=== PATIENT | female | born 1980 | race Caucasian/White ===

== ENCOUNTER 2018-01-25 16:58 | Outpatient (CLI) | payer MEDICAID ==
[2018-01-25 17:57] LABS: ADD UMIC YES; UR ASCORBIC ACID NEGATIVE (NEGATIVE); UR BACTERIA FEW /HPF (NONE SEEN); UR BILIRUBIN (Dip) NEGATIVE (NEGATIVE); UR BLOOD (Dip) 1+ mg/dL (NEGATIVE); UR CLARITY CLEAR (CLEAR); UR COLOR STRAW (YELLOW); UR GLUCOSE (Dip) NEGATIVE (NEGATIVE); UR KETONES (Dip) NEGATIVE (NEGATIVE); UR LEUKOCYTE ESTERASE (Dip) NEGATIVE Leu/ul (NEGATIVE); UR NITRITE (Dip) NEGATIVE (NEGATIVE); UR RBC 1 /HPF (0-5); UR SPECIFIC GRAVITY (Dip) 1.004 (1.003-1.030); UR SQUAMOUS EPITHELIAL CELL FEW /HPF (FEW); UR TOTAL PROTEIN (Dip) NEGATIVE (NEGATIVE); UR UROBILINOGEN (Dip) NEGATIVE (NEGATIVE); UR WBC 2 /HPF (0-5)
[2018-01-25 18:01] LABS: ADD MAN DIFF? NO; BASOPHILS % 0.1 % (0.0-2.0); EOSINOPHILS # 0.1 10^3/ul (0.0-0.5); EOSINOPHILS % 0.7 % (0.0-7.0); HEMATOCRIT 34.8 % (37.0-47.0); HEMOGLOBIN 11.9 g/dl (12.0-16.0); LYMPHOCYTES # 2.4 10^3/ul (0.8-2.9); LYMPHOCYTES % 18.1 % (15.0-51.0); MEAN CORPUSCULAR HEMOGLOBIN 30.4 pg (29.0-33.0); MEAN CORPUSCULAR HGB CONC 34.2 g/dl (32.0-37.0); MONOCYTE # 0.9 10^3/ul (0.3-0.9); MONOCYTES % 6.9 % (0.0-11.0); NEUTROPHIL # 9.8 10^3/ul (1.6-7.5); NEUTROPHILS % 73.8 % (39.0-77.0); PLATELET COUNT 243 10^3/UL (140-415); RED BLOOD COUNT 3.91 10^6/ul (4.20-5.40); RED CELL DISTRIBUTION WIDTH 13.1 % (11.5-14.5)
[2018-01-25 18:01] LABS: WHITE BLOOD COUNT 13.3 10^3/ul (4.8-10.8)
[2018-01-25 18:24] LABS: ALANINE AMINOTRANSFERASE 34 IU/L (13-69); ALBUMIN 3.8 g/dl (3.3-4.9); ALBUMIN/GLOBULIN RATIO 0.97; ALKALINE PHOSPHATASE 104 IU/L (42-121); ANION GAP 8 (5-13); ASPARTATE AMINO TRANSFERASE 36 IU/L (15-46); BILIRUBIN,INDIRECT 0.2 mg/dl (0-1.1); BILIRUBIN,TOTAL 0.2 mg/dl (0.2-1.3); BLOOD UREA NITROGEN 6 mg/dl (7-20); CALCIUM 8.9 mg/dl (8.4-10.2); CARBON DIOXIDE 24 mmol/L (21-31); CHLORIDE 107 mmol/L (97-110); CREATININE 0.51 mg/dl (0.44-1.00); Estimated GFR > 60 mL/min (>60); GLUCOSE 92 mg/dl (70-220); POTASSIUM 3.5 mmol/L (3.5-5.1); SODIUM 139 mmol/L (135-144); TOTAL PROTEIN 7.7 g/dl (6.1-8.1); URIC ACID 3.6 mg/dl (3.1-7.9)
[2018-01-25 18:25] LABS: INR 0.98; PARTIAL THROMBOPLASTIN TIME 31.1 Sec (23.0-35.0); PROTIME 13.1 Sec (11.9-14.9)
== END 2018-01-25 20:35 | disposition home or self-care (01) ==
LOC: OBT 16:58 → L-D 17:02 → OBT 20:35
DX: O16.2 Unspecified maternal hypertension, second trimester (principal); O09.522 Supervision of elderly multigravida, second trimester; Z3A.23 23 weeks gestation of pregnancy
CPT/HCPCS: 80053; 81001; 84560; 85025; 85384; 85610; 85730

== ENCOUNTER 2018-04-09 03:40 | Outpatient (CLI) | payer MEDICAID ==
[2018-04-09] MEDS: LACTATED RINGER'S 1,000 ML IV ×2 (05:41→06:34)
[2018-04-09 06:37] LABS: ADD UMIC YES; UR ASCORBIC ACID NEGATIVE (NEGATIVE); UR BACTERIA FEW /HPF (NONE SEEN); UR BILIRUBIN (Dip) NEGATIVE (NEGATIVE); UR BLOOD (Dip) 1+ mg/dL (NEGATIVE); UR CLARITY CLEAR (CLEAR); UR COLOR STRAW (YELLOW); UR GLUCOSE (Dip) NEGATIVE (NEGATIVE); UR KETONES (Dip) NEGATIVE (NEGATIVE); UR LEUKOCYTE ESTERASE (Dip) TRACE Leu/ul (NEGATIVE); UR NITRITE (Dip) NEGATIVE (NEGATIVE); UR RBC 1 /HPF (0-5); UR SPECIFIC GRAVITY (Dip) 1.002 (1.003-1.030); UR TOTAL PROTEIN (Dip) NEGATIVE (NEGATIVE); UR UROBILINOGEN (Dip) NEGATIVE (NEGATIVE); UR WBC 0 /HPF (0-5)
== END 2018-04-09 08:05 | disposition home or self-care (01) ==
LOC: OBT 03:40 → L-D 03:40 → OBT 08:05
DX: O26.853 Spotting complicating pregnancy, third trimester (principal); O24.410 Gestational diabetes mellitus in pregnancy, diet controlled; O09.523 Supervision of elderly multigravida, third trimester; Z3A.33 33 weeks gestation of pregnancy
CPT/HCPCS: 36415; 76815; 76817; 81001; 86850; 86900; 86901; 96360; 96361

== ENCOUNTER 2018-05-06 12:09 | Outpatient (CLI) | payer MEDICAID | END 2018-05-06 15:42 | disposition home or self-care (01) | LOC: OBT 12:09 → L-D 12:09 → OBT 15:42 | DX: O24.410 Gestational diabetes mellitus in pregnancy, diet controlled (principal); O36.8130 Decreased fetal movements, third trimester, not applicable or unspecified; Z3A.37 37 weeks gestation of pregnancy | CPT/HCPCS: 76818; 82962 ==

== ENCOUNTER 2018-05-17 10:04 | Inpatient (IN) | payer MEDICAID ==
[~2018-05-17 10:04] MED LIST: OXYTOCIN 30 UNITS/LR 500 ML BAG IV
[2018-05-17] MEDS ORDERED: METHYLERGONOVINE 0.2 MG INJ IM ×2 (10:30→20:30)
[2018-05-17] MEDS ORDERED: CARBOPROST 250 MCG INJ IM ×2 (10:30→20:30)
[2018-05-17] MEDS ORDERED: MISOPROSTOL 200 MCG TAB PR ×2 (10:30→20:30)
[2018-05-17] MEDS ORDERED: OXYTOCIN 30 UNITS/LR 500 ML IV ×2 (10:30→20:30)
[2018-05-17] MEDS ORDERED: CITRIC ACID/NA CITRATE 30 ML CUP (10:39)
[2018-05-17] MEDS ORDERED: ONDANSETRON 4 MG INJ (10:40)
[2018-05-17 10:55] LABS: ADD MAN DIFF? NO
[2018-05-17 10:59] LABS: WHITE BLOOD COUNT 10.5 10^3/ul (4.8-10.8)
[2018-05-17 10:59] LABS: BASOPHILS % 0.1 % (0.0-2.0); EOSINOPHILS % 0.4 % (0.0-7.0); HEMATOCRIT 36.6 % (37.0-47.0); HEMOGLOBIN 12.4 g/dl (12.0-16.0); LYMPHOCYTES # 1.9 10^3/ul (0.8-2.9); LYMPHOCYTES % 18.4 % (15.0-51.0); MEAN CORPUSCULAR HEMOGLOBIN 30.2 pg (29.0-33.0); MEAN CORPUSCULAR HGB CONC 33.9 g/dl (32.0-37.0); MEAN CORPUSCULAR VOLUME 89.3 fl (82.0-101.0); MEAN PLATELET VOLUME 12.1 fl (7.4-10.4); MONOCYTE # 0.6 10^3/ul (0.3-0.9); MONOCYTES % 5.6 % (0.0-11.0); NEUTROPHIL # 7.9 10^3/ul (1.6-7.5); NEUTROPHILS % 74.8 % (39.0-77.0); PLATELET COUNT 173 10^3/UL (140-415); RED CELL DISTRIBUTION WIDTH 14.3 % (11.5-14.5)
[2018-05-17] MEDS: LACTATED RINGER'S 1,000 ML IV ×2 (11:01→18:18)
[2018-05-17 11:15] LABS: GLUCOSE 83 mg/dl (70-220)
[2018-05-17 11:19] LABS: PROTIME 12.3 Sec (11.9-14.9)
[2018-05-17 11:20] LABS: PARTIAL THROMBOPLASTIN TIME 29.8 Sec (23.0-35.0)
[2018-05-17 11:53] LABS: HEPATITIS B SURFACE ANTIGEN NEGATIVE (NEGATIVE)
[2018-05-17] MEDS: CITRIC ACID/NA CITRATE 30 ML CUP PO (12:53)
[2018-05-17] MEDS: ONDANSETRON 4 MG INJ IV (12:54)
[2018-05-17] MEDS ORDERED: PHENYLephrine (100 MCG/ML) 10ML SYG (13:27)
[2018-05-17] MEDS: CEFAZOLIN 2 GM/50 ML (PMX) 50 ML IVPB (13:27)
[2018-05-17] MEDS ORDERED: morphine SULFATE/PF (10 MG/10 ML) INJ (13:28)
[2018-05-17] MEDS ORDERED: OXYTOCIN 10 UNIT INJ (13:28)
[2018-05-17] MEDS ORDERED: NALOXONE (0.4 MG/ML) INJ IV (14:00)
[2018-05-17] MEDS ORDERED: morphine 2 MG INJ IV ×2 (14:00)
[2018-05-17] MEDS ORDERED: HYDROmorphONE 0.5 MG/0.5 ML SYG IV ×2 (14:00)
[2018-05-17] MEDS ORDERED: HYDROCODONE/APAP (5/325) TAB PO (14:00)
[2018-05-17] MEDS ORDERED: ONDANSETRON 4 MG INJ IV (14:00)
[2018-05-17] MEDS ORDERED: ACETAMINOPHEN 500 MG TAB PO (14:00)
[2018-05-17] MEDS ORDERED: NALBUPHINE HCL (10 MG/1 ML) INJ IV (14:00)
[2018-05-17] MEDS ORDERED: METOCLOPRAMIDE 10 MG INJ (14:13)
[2018-05-17] MEDS ORDERED: KETOROLAC 30 MG INJ (14:13)
[2018-05-17] MEDS ORDERED: DEXAMETHASONE 4 MG/ML 1 ML INJ (14:13)
[2018-05-17] MEDS: OXYTOCIN 30 UNITS/LR 500 ML IV ×4 (15:00→23:44)
[2018-05-17] MEDS: KETOROLAC 30 MG INJ IV (16:50)
[2018-05-17] MEDS: DIPHENHYDRAMINE 50 MG INJ IV (17:19)
[2018-05-17 17:57] LABS: ADD MAN DIFF? NO
[2018-05-17 18:01] LABS: WHITE BLOOD COUNT 15.6 10^3/ul (4.8-10.8)
[2018-05-17 18:02] LABS: BASOPHILS % 0.1 % (0.0-2.0); EOSINOPHILS % 0.1 % (0.0-7.0); HEMATOCRIT 39.3 % (37.0-47.0); HEMOGLOBIN 13.4 g/dl (12.0-16.0); LYMPHOCYTES # 1.1 10^3/ul (0.8-2.9); LYMPHOCYTES % 7.3 % (15.0-51.0); MEAN CORPUSCULAR HEMOGLOBIN 30.2 pg (29.0-33.0); MEAN CORPUSCULAR HGB CONC 34.1 g/dl (32.0-37.0); MEAN CORPUSCULAR VOLUME 88.7 fl (82.0-101.0); MEAN PLATELET VOLUME 12.3 fl (7.4-10.4); MONOCYTE # 0.4 10^3/ul (0.3-0.9); MONOCYTES % 2.4 % (0.0-11.0); NEUTROPHILS % 89.6 % (39.0-77.0); PLATELET COUNT 187 10^3/UL (140-415); RED BLOOD COUNT 4.43 10^6/ul (4.20-5.40); RED CELL DISTRIBUTION WIDTH 14.4 % (11.5-14.5)
[2018-05-17 18:12] LABS: ADD UMIC YES; UR ASCORBIC ACID NEGATIVE (NEGATIVE); UR BACTERIA FEW /HPF (NONE SEEN); UR BILIRUBIN (Dip) NEGATIVE (NEGATIVE); UR BLOOD (Dip) NEGATIVE (NEGATIVE); UR CLARITY CLEAR (CLEAR); UR COLOR YELLOW (YELLOW); UR GLUCOSE (Dip) NEGATIVE (NEGATIVE); UR KETONES (Dip) 1+ mg/dL (NEGATIVE); UR LEUKOCYTE ESTERASE (Dip) NEGATIVE Leu/ul (NEGATIVE); UR MUCUS FEW /HPF (NONE SEEN); UR NITRITE (Dip) NEGATIVE (NEGATIVE); UR RBC 2 /HPF (0-5); UR TOTAL PROTEIN (Dip) 2+ mg/dl (NEGATIVE); UR UROBILINOGEN (Dip) NEGATIVE (NEGATIVE); UR WBC 1 /HPF (0-5)
[2018-05-17 18:25] LABS: ALANINE AMINOTRANSFERASE 21 IU/L (13-69); ALBUMIN 3.2 g/dl (3.3-4.9); ALBUMIN/GLOBULIN RATIO 0.84; ALKALINE PHOSPHATASE 165 IU/L (42-121); ANION GAP 12 (5-13); ASPARTATE AMINO TRANSFERASE 40 IU/L (15-46); BILIRUBIN,INDIRECT 0.3 mg/dl (0-1.1); BILIRUBIN,TOTAL 0.3 mg/dl (0.2-1.3); BLOOD UREA NITROGEN 9 mg/dl (7-20); CALCIUM 8.7 mg/dl (8.4-10.2); CARBON DIOXIDE 20 mmol/L (21-31); CHLORIDE 108 mmol/L (97-110); CREATININE 0.54 mg/dl (0.44-1.00); Estimated GFR > 60 mL/min (>60); GLUCOSE 98 mg/dl (70-220); SODIUM 140 mmol/L (135-144); URIC ACID 4.9 mg/dl (3.1-7.9)
[2018-05-17 20:13] LABS: RAPID PLASMA REAGIN NONREACTIVE (NR)
[2018-05-17] MEDS: SENNA/DOCUSATE NA (8.6MG/50MG) TAB PO (21:00)
[2018-05-18] MEDS: KETOROLAC 30 MG INJ IV ×2 (02:22→09:57)
[2018-05-18 08:42] LABS: ADD MAN DIFF? NO
[2018-05-18 08:46] LABS: BASOPHILS % 0.2 % (0.0-2.0); EOSINOPHILS % 0.2 % (0.0-7.0); HEMATOCRIT 35.3 % (37.0-47.0); HEMOGLOBIN 11.8 g/dl (12.0-16.0); LYMPHOCYTES % 15.1 % (15.0-51.0); MEAN CORPUSCULAR HEMOGLOBIN 29.8 pg (29.0-33.0); MEAN CORPUSCULAR HGB CONC 33.4 g/dl (32.0-37.0); MEAN CORPUSCULAR VOLUME 89.1 fl (82.0-101.0); MEAN PLATELET VOLUME 12.4 fl (7.4-10.4); MONOCYTES % 8.1 % (0.0-11.0); NEUTROPHIL # 9.8 10^3/ul (1.6-7.5); NEUTROPHILS % 75.9 % (39.0-77.0); PLATELET COUNT 175 10^3/UL (140-415); RED BLOOD COUNT 3.96 10^6/ul (4.20-5.40); RED CELL DISTRIBUTION WIDTH 14.3 % (11.5-14.5)
[2018-05-18 08:46] LABS: WHITE BLOOD COUNT 12.9 10^3/ul (4.8-10.8)
[2018-05-18] MEDS: SENNA/DOCUSATE NA (8.6MG/50MG) TAB PO ×2 (09:00→21:36)
[2018-05-18] MEDS: LACTATED RINGER'S 1,000 ML IV (10:06)
[2018-05-18] MEDS: OXYCODONE/ACETAMINOPHEN (5/325) TAB PO ×2 (14:10→18:05)
[2018-05-18] MEDS: LANOLIN HPA 1 PKT TOP (16:21)
[2018-05-18] MEDS: IBUPROFEN 800 MG TAB PO (21:36)
[2018-05-19] MEDS: OXYCODONE/ACETAMINOPHEN (5/325) TAB PO ×4 (00:03→21:27)
[2018-05-19] MEDS: IBUPROFEN 800 MG TAB PO ×3 (06:19→21:26)
[2018-05-19] MEDS: SENNA/DOCUSATE NA (8.6MG/50MG) TAB PO ×2 (08:33→21:26)
[2018-05-19] MEDS: LANOLIN HPA 1 PKT TOP (16:57)
[2018-05-19] MEDS: MAGNESIUM HYDROXIDE 30ML CUP PO (19:02)
[2018-05-20] MEDS: IBUPROFEN 800 MG TAB PO ×2 (06:18→13:08)
[2018-05-20] MEDS: DIPHTH/TET/ACEL PERTUSS (ADULT) 0.5 ML VIAL IM* (07:56)
[2018-05-20] MEDS: SENNA/DOCUSATE NA (8.6MG/50MG) TAB PO (10:10)
== END 2018-05-20 15:25 | disposition home or self-care (01) | DRG 785 ==
LOC: L-D 10:04 → PP1 20:13
PROVIDERS: Obstetrics & Gynecology
PROC: 10D00Z1 Extraction of Products of Conception, Low, Open Approach (ICD-10-PCS; principal; 2018-05-17 12:30)
PROC: 0UL70ZZ Occlusion of Bilateral Fallopian Tubes, Open Approach (ICD-10-PCS; 2018-05-17 12:30)
PROC: 3E033VJ Introduction of Other Hormone into Peripheral Vein, Percutaneous Approach (ICD-10-PCS; 2018-05-17 12:30)
DX: O34.211 Maternal care for low transverse scar from previous cesarean delivery (principal); O24.429 Gestational diabetes mellitus in childbirth, unspecified control; Z3A.39 39 weeks gestation of pregnancy; Z37.0 Single live birth; Z30.2 Encounter for sterilization
CPT/HCPCS: 80053; 81001; 82947; 84560; 85025; 85610; 85730; 86592; 86850; 86900; 86901; 87340; 88302; 90686; 90715; 99464